=== PATIENT | female | born 2000 | race Caucasian/White ===

== ENCOUNTER 2019-04-06 19:22 | Emergency (ER) | payer BC ==
[~2019-04-06] VITALS: Ht 160 cm; Wt 63.5 kg
[2019-04-06 19:24] VITALS: BP_SYST 92
[2019-04-06] MEDS ORDERED: methylPREDNISolone SOD SUCC/PF 62.5 MG/ML VIAL IVP ONE (19:45)
[2019-04-06] MEDS ORDERED: EPINEPHrine JECT 1 MG/10 ML SYR IM ONE (19:45)
[2019-04-06] MEDS ORDERED: FAMOTIDINE PF 20 MG/2 ML VIAL IVP ONE (19:45)
[2019-04-06] MEDS ORDERED: IPRATROPIUM/ALBUTEROL SULFATE 3 ML AMPUL.NEB (DUONEB) INH ONE (19:45)
[2019-04-06] MEDS ORDERED: NACL 0.9% 1,000 ML IV ONE ×2 (19:45→21:15)
[2019-04-06] MEDS ORDERED: IPRATROPIUM/ALBUTEROL SULFATE 3 ML AMPUL.NEB (DUONEB) ONE (19:57)
[2019-04-06] MEDS ORDERED: ONDANSETRON HCL 4 MG/2 ML VIAL IVP ONE (20:00)
[2019-04-06] MEDS ORDERED: ONDANSETRON HCL 4 MG/2 ML VIAL ONE (20:04)
[2019-04-06 20:15] LABS: BASOPHILS % (AUTO) 0.2 % (0.0-2.0); EOSINOPHILS % (AUTO) 0.3 % (0.0-4.0); HEMATOCRIT 43.8 % (36-48); HEMOGLOBIN 14.8 g/dL (12.0-16.0); LYMPHOCYTES # (AUTO) 3.3 K/uL (1.0-5.5); LYMPHOCYTES % (AUTO) 26.3 % (20.5-51.5); MEAN CORPUSCULAR HEMOGLOBIN 32 pg (27-31); MEAN CORPUSCULAR HGB CONC 34 % (32-36); MEAN CORPUSCULAR VOLUME 94 fL (79.0-98.0); MONOCYTES # (AUTO) 0.8 K/uL (0.0-1.0); MONOCYTES % (AUTO) 6.6 % (1.7-9.3); NEUTROPHILS # (AUTO) 8.4 K/uL (1.8-7.7); NEUTROPHILS % (AUTO) 66.6 % (40.0-70.0); PLATELET COUNT (AUTO) 317 K/uL (130-430); RED BLOOD CELL COUNT(AUTO) 4.65 MIL/uL (4.2-6.2); RED CELL DISTRIBUTION WIDTH 12.8 % (9.0-15.0); WHITE BLOOD COUNT (AUTO) 12.6 K/uL (4.5-11.0)
[2019-04-06 20:26] LABS: CALCIUM 8.5 mg/dL (8.4-11.0); CREATININE 0.89 mg/dL (0.55-1.30); POTASSIUM 3.2 mmol/L (3.5-5.1)
[2019-04-06 20:31] LABS: ALBUMIN 3.7 g/dL (3.4-4.8); TOTAL BILIRUBIN 0.5 mg/dL (0.0-1.0)
[2019-04-06 22:54] VITALS: BP_SYST 120
== END 2019-04-06 22:54 | disposition home or self-care (01) ==
LOC: SED 19:22
DX: T78.2XXA Anaphylactic shock, unspecified, initial encounter (principal); Z91.010 Allergy to peanuts; X58.XXXA Exposure to other specified factors, initial encounter
CPT/HCPCS: 36415; 80053; 85025; 94640; 96372; 96374; 96375; 99284; J0171; J2405; J2930; J3490; J7030; J7620

== ENCOUNTER 2020-01-28 11:52 | Emergency (ER) | payer BC ==
[~2020-01-28] VITALS: Ht 160 cm; Wt 63.5 kg
[2020-01-28 11:52] VITALS: BP_SYST 134
[2020-01-28] MEDS ORDERED: LORazepam 1 MG TABLET PO ONE (13:00)
[2020-01-28 13:44] LABS: BASOPHILS % (AUTO) 0.6 % (0.0-2.0); EOSINOPHILS % (AUTO) 0.4 % (0.0-4.0); HEMATOCRIT 42.8 % (36-48); HEMOGLOBIN 14.7 g/dL (12.0-16.0); LYMPHOCYTES # (AUTO) 1.1 K/uL (1.0-5.5); LYMPHOCYTES % (AUTO) 19.4 % (20.5-51.5); MEAN CORPUSCULAR HEMOGLOBIN 32 pg (27-31); MEAN CORPUSCULAR HGB CONC 34 % (32-36); MEAN CORPUSCULAR VOLUME 92 fL (79.0-98.0); MONOCYTES # (AUTO) 0.4 K/uL (0.0-1.0); MONOCYTES % (AUTO) 7.1 % (1.7-9.3); NEUTROPHILS # (AUTO) 4.3 K/uL (1.8-7.7); NEUTROPHILS % (AUTO) 72.5 % (40.0-70.0); PLATELET COUNT (AUTO) 273 K/uL (130-430); RED BLOOD CELL COUNT(AUTO) 4.64 MIL/uL (4.2-6.2); RED CELL DISTRIBUTION WIDTH 12.3 % (9.0-15.0); WHITE BLOOD COUNT (AUTO) 5.9 K/uL (4.5-11.0)
[2020-01-28 13:57] LABS: CALCIUM 9.2 mg/dL (8.4-11.0); CREATININE 0.72 mg/dL (0.55-1.30); POTASSIUM 3.9 mmol/L (3.5-5.1)
[2020-01-28 14:04] LABS: ALBUMIN 4.4 g/dL (3.4-4.8); TOTAL BILIRUBIN 0.6 mg/dL (0.0-1.0)
[2020-01-28 14:13] LABS: INR 1.1 (0.8-1.2); PROTHROMBIN TIME 10.8 SECS (9.5-12.5)
[2020-01-28 15:52] VITALS: BP_SYST 110
== END 2020-01-28 15:52 | disposition home or self-care (01) ==
LOC: SED 11:52
DX: F41.9 Anxiety disorder, unspecified (principal); Z91.010 Allergy to peanuts
CPT/HCPCS: 36415; 71045; 80053; 81025; 82550-TC; 84484; 84703; 85025; 85610-TC; 85730-TC; 93005; 99285

== ENCOUNTER 2020-11-17 16:24 | Emergency (ER) | payer BC ==
[~2020-11-17] VITALS: Ht 160 cm; Wt 74.8 kg
[2020-11-17 16:28] VITALS: BP_SYST 157
[2020-11-17 17:39] LABS: BASOPHILS % (AUTO) 0.6 % (0.0-2.0); EOSINOPHILS # (AUTO) 0.1 K/uL (0.0-0.4); EOSINOPHILS % (AUTO) 1.3 % (0.0-4.0); HEMATOCRIT 40.9 % (36-48); HEMOGLOBIN 13.9 g/dL (12.0-16.0); LYMPHOCYTES # (AUTO) 1.5 K/uL (1.0-5.5); LYMPHOCYTES % (AUTO) 18.4 % (20.5-51.5); MEAN CORPUSCULAR HEMOGLOBIN 31 pg (27-31); MEAN CORPUSCULAR HGB CONC 34 % (32-36); MEAN CORPUSCULAR VOLUME 92 fL (79.0-98.0); MONOCYTES # (AUTO) 0.6 K/uL (0.0-1.0); NEUTROPHILS # (AUTO) 5.8 K/uL (1.8-7.7); NEUTROPHILS % (AUTO) 72.7 % (40.0-70.0); PLATELET COUNT (AUTO) 283 K/uL (130-430); RED BLOOD CELL COUNT(AUTO) 4.45 MIL/uL (4.2-6.2)
[2020-11-17 18:06] LABS: PROTHROMBIN TIME 10.4 SECS (9.5-12.5)
[2020-11-17 18:08] LABS: C-REACTIVE PROTEIN QUANT < 0.2 mg/dL (0-0.5)
[2020-11-17 18:21] LABS: ALANINE AMINOTRANSFERASE 48 U/L (12-78); ALBUMIN 4.2 g/dL (3.4-4.8); ASPARTATE AMINOTRANSFERASE 28 U/L (10-37); CALCIUM 9.1 mg/dL (8.4-11.0); CHLORIDE 104 mmol/L (98-107); CREATININE 0.68 mg/dL (0.55-1.30); GLUCOSE 87 mg/dL (70-99); POTASSIUM 4.1 mmol/L (3.5-5.1); SODIUM SERUM 139 mmol/L (136-145); TOTAL BILIRUBIN 0.4 mg/dL (0.0-1.0); UREA NITROGEN, BLOOD 8 mg/dL (8-21)
[2020-11-17 18:22] LABS: GFR AFRICAN AMERICAN 140 mL/min (>90)
[2020-11-17 18:30] LABS: ERYTHROCYTE SEDIMENTATION RATE 11 MM/HR (0-20)
[2020-11-17 18:36] LABS: ANION GAP 6 (5-15)
[2020-11-17 19:45] VITALS: BP_SYST 148
== END 2020-11-17 19:45 | disposition home or self-care (01) ==
LOC: SED 16:24
DX: R51.9 Headache, unspecified (principal); F41.9 Anxiety disorder, unspecified; Z91.018 Allergy to other foods
CPT/HCPCS: 36415; 70450-TC; 76376; 80053; 81025; 85025; 85610-TC; 85651-TC; 85730-TC; 86140; 99284